=== PATIENT | male | born 1960 | race Two or more races ===

== ENCOUNTER 2020-04-26 15:12 | Outpatient (CLI) | payer OTHER | END 2020-04-26 16:00 | disposition home or self-care (01) | LOC: OFIC 805 15:12 | PROVIDERS: ATTEND Otolaryngology Otology & Neurotology | DX: H90.11 Conductive hearing loss, unilateral, right ear, with unrestricted hearing on the contralateral side (principal); H73.811 Atrophic flaccid tympanic membrane, right ear ==

== ENCOUNTER 2020-05-05 09:37 | Outpatient (CLI) | payer OTHER | END 2020-05-05 09:46 | disposition home or self-care (01) | LOC: TOM 09:37 | PROVIDERS: ATTEND Otolaryngology Otology & Neurotology | DX: H90.A12 Conductive hearing loss, unilateral, left ear with restricted hearing on the contralateral side (principal) ==

== ENCOUNTER 2020-05-12 05:55 | Day surgery (SDC) | payer OTHER ==
[2020-05-12] MEDS ORDERED: ZOFRAN8 MG PO (10:10)
[2020-05-12] MEDS ORDERED: KEFLEX500 MG PO (10:10)
== END 2020-05-12 13:50 | disposition home or self-care (01) ==
LOC: CIR.AMB 05:55
PROVIDERS: ATTEND Otolaryngology Otology & Neurotology
DX: H90.11 Conductive hearing loss, unilateral, right ear, with unrestricted hearing on the contralateral side (principal); H74.21 Discontinuity and dislocation of right ear ossicles; H73.811 Atrophic flaccid tympanic membrane, right ear; Z20.828 Contact with and (suspected) exposure to other viral communicable diseases

== ENCOUNTER 2020-05-19 15:56 | Outpatient (CLI) | payer OTHER ==
[~2020-05-19 15:56] MED LIST: KEFLEX500 MG PO; ZOFRAN8 MG PO
== END 2020-05-19 16:00 | disposition home or self-care (01) ==
LOC: OFIC 805 15:56
PROVIDERS: ATTEND Otolaryngology Otology & Neurotology
DX: H90.11 Conductive hearing loss, unilateral, right ear, with unrestricted hearing on the contralateral side (principal); H74.21 Discontinuity and dislocation of right ear ossicles; H73.811 Atrophic flaccid tympanic membrane, right ear

== ENCOUNTER 2020-08-23 09:49 | Outpatient (CLI) | payer OTHER | END 2020-08-23 15:12 | disposition home or self-care (01) | LOC: OFIC 805 09:49 | PROVIDERS: ATTEND Otolaryngology Otology & Neurotology | DX: H90.11 Conductive hearing loss, unilateral, right ear, with unrestricted hearing on the contralateral side (principal); H73.811 Atrophic flaccid tympanic membrane, right ear; H74.21 Discontinuity and dislocation of right ear ossicles; R09.82 Postnasal drip; J31.0 Chronic rhinitis ==